=== PATIENT | female | born 1955 ===

== ENCOUNTER 2022-06-22 06:33 | Day surgery (SDC) | payer OTHER ==
[~2022-06-22] VITALS: Ht 157.5 cm; Wt 60.8 kg
[~2022-06-22 06:33] MED LIST: NORVASC2.5 MG PO; SIMVASTATIN
== END 2022-06-22 20:00 | disposition home or self-care (01) ==
LOC: CIR.AMB 06:33
PROVIDERS: ATTEND Specialist
DX: R87.613 High grade squamous intraepithelial lesion on cytologic smear of cervix (HGSIL) (principal); Z20.822 Contact with and (suspected) exposure to COVID-19; I10 Essential (primary) hypertension; G47.33 Obstructive sleep apnea (adult) (pediatric); Z99.89 Dependence on other enabling machines and devices; Z88.0 Allergy status to penicillin; Z88.8 Allergy status to other drugs, medicaments and biological substances